=== PATIENT | female | born 1945 | race African-American/Black ===

== ENCOUNTER 2019-06-20 21:08 | Inpatient (IN) | payer MEDICARE, MEDICAID ==
[~2019-06-20] VITALS: Ht 177.8 cm; Wt 76.7 kg
[2019-06-20 21:08] VITALS: BP 108/62
--- NOTE | 2019-06-20 21:08 | NUR ---
ED Nurse Note: brought in by ambulance jaquan ra 70 from [facility] c/o hypotension 89/62. received pt with bp 108/62. patient aox1 with episodes of confusion; hx dementia. nad. vss. changed into gown; attached to monitor. safety precautions observed. family at bedside.
--- NOTE | 2019-06-20 21:16 | Emergency Room Report ---
History of Present Illness General Chief Complaint: General Complaint Source: Patient, Medical Record Present Illness HPI This is a 73-year-old female with history of diabetes and high blood pressure. She presents with chief complaint of hypotension. She also has history of dementia. She was at a [facility]. She was sitting in the chair and nursing staff took her blood pressure. It was 88/40 with a heart rate in the 80s. Patient has no symptoms. They called 911. Patient have any complaint. Per clam bed laborer their blood pressure was 92/68. Here is 108/60. Patient denies any chest pain. She has no shortness of breath. She has no abdominal pain. She has no urinary complaint. Allergies: Coded Allergies: PENICILLINS (Unverified Allergy, Unknown, 06/20/19) Uncoded Allergies: PCN (Allergy, Unknown, 06/20/19) Patient History Past Medical History: see triage record, old chart reviewed Past Surgical History: none Pertinent Family History: none Social History: Denies: smoking Now: No Immunizations: other Reviewed Nursing Documentation: PMH: Agreed; PSxH: Agreed Nursing Documentation-PMH Past Medical History: No History, Except For Hx Cardiac Problems: Yes - angina pectoris Hx Hypertension: Yes - hyperlipidemia Hx Neurological Problems: Yes - dementia Review of Systems Eye: Denies: eye pain, blurred vision ENT: Denies: ear pain, nose congestion, throat swelling Respiratory: Denies: cough, shortness of breath Cardiovascular: Denies: chest pain, palpitations Gastrointestinal: Denies: abdominal pain, diarrhea, nausea, vomiting Musculoskeletal: Denies: back pain, joint pain Skin: Denies: rash Neurological: Denies: headache, numbness Endocrine: Denies: increased thirst, increased urine Hematologic/Lymphatic: Denies: easy bruising All Other Systems: negative except mentioned in HPI Physical Exam Vital Signs Date Time Temp Pulse Resp B/P (MAP) Pulse Ox O2 Delivery O2 Flow Rate FiO2 06/20/19 21:04 99.0 89 16 108/62 (77) 100 Room Air Vitals normal Sp02 EP Interpretation: reviewed, normal General Appearance: well appearing, no apparent distress, alert Head: normocephalic, atraumatic Eyes: bilateral eye PERRL, bilateral eye EOMI ENT: hearing grossly normal, normal pharynx Neck: full range of motion, supple, no meningismus Respiratory: chest non-tender, lungs clear, normal breath sounds Cardiovascular #1: regular rate, rhythm, no murmur Gastrointestinal: normal bowel sounds, non tender, no mass, no organomegaly, no bruit, non-distended Musculoskeletal: back normal, normal range of motion, gait/station normal Psychiatric: mood/affect normal Medical Decision Making Diagnostic Impression: Primary Impression: Encephalopathy acute Additional Impressions: Transient hypotension ARF (acute renal failure) Qualified Codes: N17.9 - Acute kidney failure, unspecified ER Course Patient presents with confusion and transient hypotension. I spoke with Dr. Linn Stallworth. She said that at baseline patient is agitated and somewhat combative. She said that at the fdc she was lethargic and decreased mentation per fdc staff. Initial blood pressure was mid 80s over 40s. Were waist up and systolic became 99. Nursing staff called her again and said it dropped down to the 80s again. She ordered IV fluids but there were no residents or nurse there so they sent her here by 911. Here patient has no complaint but seem to be sedated which seemed to be decreased from baseline. Labs showed acute renal failure. We called the fdc but there is no previous labs. Dr. Stallworth wanted the patient to be admitted to Dr. Green. I discussed the case with him and he accepted the patient for admission. Rhythm Strip Diag. Results EP Interpretation: yes Rate: 89 Rhythm: NSR, no PVC's, no ectopy Last Vital Signs Date Time Temp Pulse Resp B/P (MAP) Pulse Ox O2 Delivery O2 Flow Rate FiO2 06/20/19 21:04 99.0 89 16 108/62 (77) 100 Room Air Status: improved Disposition: ADMITTED INPATIENT Condition: Serious Kane Maldonado MD Jun 20, 2019 21:16
--- NOTE | 2019-06-20 21:20 | NUR ---
ED Nurse Note: IV ACCESS ESTABLISHED. BLOOD COLLECTED; SENT DOWN TO LAB. UNABLE TO OBTAIN URINE; PT STATES SHE WILL PROVIDE WHEN ABLE.
[2019-06-20 21:44] LABS: BASOPHILS % (AUTO) 0.5 % (0.0-2.0); EOSINOPHILS % (AUTO) 0.3 % (0.0-3.0); HEMATOCRIT 34.5 % (37.0-47.0); HEMOGLOBIN 11.1 G/DL (12.0-16.0); LYMPHOCYTES % (AUTO) 13.9 % (20.0-45.0); MEAN CORPUSCULAR VOLUME 99 FL (80-99); MONOCYTES % (AUTO) 5.6 % (1.0-10.0); NEUTROPHILS % (AUTO) 79.7 % (45.0-75.0); PLATELET COUNT 243 K/UL (150-450); RED BLOOD COUNT 3.49 M/UL (4.20-5.40); WHITE BLOOD COUNT 11.1 K/UL (4.8-10.8)
[2019-06-20 21:56] LABS: ANION GAP 11 mmol/L (5-15); BLOOD UREA NITROGEN 49 mg/dL (7-18); CALCIUM 9.1 MG/DL (8.5-10.1); CARBON DIOXIDE 25 MMOL/L (21-32); CHLORIDE 105 MMOL/L (98-107); CREATININE 2.4 MG/DL (0.55-1.30); POTASSIUM 5.6 MMOL/L (3.5-5.1); SODIUM 141 MMOL/L (136-145)
--- NOTE | 2019-06-20 21:59 | NUR ---
ED Nurse Note: URINE COLLECTED; SENT DOWN TO LAB.
[2019-06-20 22:11] LABS: APPEARANCE,URINE SLIGHTLY CLOUDY; BILIRUBIN, URINE NEGATIVE (NEGATIVE); COLOR,URINE AMBER; GLUCOSE, URINE (UA) 2+ (NEGATIVE); KETONES,URINE NEGATIVE (NEGATIVE); LEUKOCYTE ESTERASE ,URINE NEGATIVE (NEGATIVE); NITRITE,URINE NEGATIVE (NEGATIVE); PH,URINE 5 (4.5-8.0); PROTEIN,URINE 1+ (NEGATIVE); UROBILINOGEN,URINE 1 MG/DL (0.0-1.0)
[2019-06-20 22:43] VITALS: BP 128/62
[2019-06-20] MEDS ORDERED: Miralax 17gm pkt ORAL PRN (22:45)
[2019-06-20] MEDS ORDERED: BISACODYL5 MG RECTAL (22:45)
[2019-06-20] MEDS ORDERED: ATORVASTATIN CA40 MG ORAL (22:45)
[2019-06-20] MEDS ORDERED: Nitroglycerin Subl 0.4mg tab SL PRN (22:45)
[2019-06-20] MEDS ORDERED: GLIPIZIDE5 MG ORAL (22:45)
[2019-06-20] MEDS ORDERED: COLACE100 MG ORAL (22:45)
[2019-06-20] MEDS ORDERED: LANTUS SOL100 UNIT/1 SUBQ (22:45)
--- NOTE | 2019-06-20 22:46 | NUR ---
ED Nurse Note: ekg done at bedside by [facility]; nsr. mrsa swab collected; sent down to lab. pt refused vre swab.
[2019-06-20] MEDS ORDERED: METFORMIN HCL850 M1 ORAL (23:09)
[2019-06-20] MEDS ORDERED: MIRTAZAPINE15 MG ORAL (23:09)
[2019-06-20] MEDS ORDERED: MILK OF MA400 MG/51 ORAL (23:09)
[2019-06-20] MEDS ORDERED: LISINOPRIL5 MG ORAL (23:09)
[2019-06-20] MEDS ORDERED: GLUCOSE GEL38 GM PO (23:09)
[2019-06-20] MEDS ORDERED: NOVOLIN R100 UNIT/1 SUBQ (23:09)
[2019-06-20] MEDS ORDERED: TYLENOL EXTRA500 MG ORAL (23:10)
[2019-06-20] MEDS ORDERED: SENNA8.6 M2 PO (23:10)
--- NOTE | 2019-06-20 23:15 | NUR ---
ED Nurse Note: blood cultures collected; sent down to lab.
[2019-06-20 23:18] VITALS: BP 114/62
[2019-06-20 23:19] VITALS: BP_SYST 114; BP_SYST 128; BP_SYST 98; BP_DIAS 62; BP_DIAS 83
[2019-06-20 23:50] VITALS: BP 134/77
--- NOTE | 2019-06-20 23:50 | NUR ---
NURSE NOTES: Patient transferred to floor in stable condition, AOx1, denies pain, no skin impairment. Received report from TERESO Hall. Belonging list checked and signed, admission packet received.Orders in. Bed low&locked, side rail upx3, call light within reach, will continue to monitor and reassess
--- NOTE | 2019-06-20 23:50 | NUR ---
TRANSFER TO FLOOR: Patient transferred to [facility] 211-1 as ordered, per rahat pate. Report given to anahi. patient stable for transfer. transported to floor via gurney with merly and rn. belongings list and admission packet sent with patient.
--- NOTE | 2019-06-21 01:06 | NUR ---
NURSE NOTES: Patient is a very poor historian, unable to obtain any information upon assessment. Refused IV fluid and removed her IV. Not cooperating and combative. Reassured and oriented patient to room and hospital. Bed low&locked, side rails upx3, call light within reach, will continue to monitor and reassess
[2019-06-21 04:00] VITALS: BP 132/81
--- NOTE | 2019-06-21 04:00 | NUR ---
NURSE NOTES: patient refused EKG
[2019-06-21 05:52] LABS: BASOPHILS % (AUTO) 0.8 % (0.0-2.0); EOSINOPHILS % (AUTO) 1.1 % (0.0-3.0); HEMATOCRIT 28.8 % (37.0-47.0); HEMOGLOBIN 9.9 G/DL (12.0-16.0); LYMPHOCYTES % (AUTO) 36.9 % (20.0-45.0); MEAN CORPUSCULAR VOLUME 95 FL (80-99); MONOCYTES % (AUTO) 8.1 % (1.0-10.0); NEUTROPHILS % (AUTO) 53.2 % (45.0-75.0); PLATELET COUNT 218 K/UL (150-450); RED BLOOD COUNT 3.03 M/UL (4.20-5.40); RED CELL DISTRIBUTION WIDTH 10.4 % (11.6-14.8); WHITE BLOOD COUNT 6.7 K/UL (4.8-10.8)
--- NOTE | 2019-06-21 05:59 | NUR ---
NURSE NOTES: refused accu-check
[2019-06-21] MEDS: NovoLOG Insulin Flexpen SUBQ SCH ×4 (06:29→21:00)
[2019-06-21 06:46] LABS: ALANINE AMINOTRANSFERASE 18 U/L (12-78); ALBUMIN 2.4 G/DL (3.4-5.0); ALBUMIN/GLOBULIN RATIO 0.7 (1.0-2.7); ALKALINE PHOSPHATASE 75 U/L (46-116); ANION GAP 11 mmol/L (5-15); ASPARTATE AMINO TRANSFERASE 15 U/L (15-37); BILIRUBIN,TOTAL 0.3 MG/DL (0.2-1.0); BLOOD UREA NITROGEN 40 mg/dL (7-18); CALCIUM 8.8 MG/DL (8.5-10.1); CARBON DIOXIDE 22 MMOL/L (21-32); CHLORIDE 112 MMOL/L (98-107); CHOLESTEROL 169 MG/DL (< 200); CREATINE KINASE 68 U/L (26-308); CREATININE 1.5 MG/DL (0.55-1.30); HDL CHOLESTEROL 55 MG/DL (40-60); PHOSPHORUS 3.2 MG/DL (2.5-4.9); POTASSIUM 4.4 MMOL/L (3.5-5.1); SODIUM 145 MMOL/L (136-145); TRIGLYCERIDES 52 MG/DL (30-150)
--- NOTE | 2019-06-21 07:35 | NUR ---
HAND-OFF: Report given to Zara RIDER patient in stable condition, plan of care endorsed.
--- NOTE | 2019-06-21 08:30 | NUR ---
NURSE NOTES: Patient very confused only oriented to self stating she needs to leave. RR even and unlabored on 2L NC. No s/sx of distress. Bed alarm on, Side rails upx2, call light within reach, bed low and locked. Will continue to monitor.
--- NOTE | 2019-06-21 08:38 | Diagnostic Imaging Report ---
Indication: Acute renal failure, abnormal renal function tests Technique: Grayscale and duplex images of the kidneys, retroperitoneum, and bladder were obtained. Comparison: none Findings: Exam is limited as patient unable to position and cooperate optimally. Right kidney measures 10 cm in length. Left kidney measures 8.4 cm in length. Both kidneys demonstrate normal echogenicity. Right kidney demonstrates mild hydronephrosis. Left kidney is poorly visualized, demonstrates no hydronephrosis. It does demonstrate a 5 cm upper pole cyst. Normal inferior vena cava. Bladder is markedly distended, calculated volume 621 mL. Impression: Somewhat limited exam, as described Distended bladder, calculated volume 621 mL Mild right hydronephrosis, possibly related to the above but other etiologies possible. Incidental finding of left upper pole renal cyst.
[2019-06-21] MEDS ORDERED: GlipiZIDE 5mg tab ORAL SCH (09:00)
[2019-06-21] MEDS: Docusate 100mg cap ORAL SCH ×2 (09:26→17:55)
[2019-06-21] MEDS: Aspirin Baby 81mg ORAL SCH (09:27)
[2019-06-21] MEDS: Heparin 5000 units/ml inj SUBQ SCH ×2 (09:51→21:00)
[2019-06-21 12:00] VITALS: BP 137/64
--- NOTE | 2019-06-21 13:01 | NUR ---
ST NOTES: REFERRED FOR SWALLOW EVALUATION BY DR MENDEZ, SEE FULL REPORT. DYSPHAGIA RISK FACTORS FOR THIS 73 Y.O.F.: ACUTE ISSUES: AMS (AGITATED, COMBATIVE) ENCEPHALOPATHY, TRANSIENT HYPOTENSION, RENAL FAILURE, LUNGS ARE CLEAR PER MD (NO CXR) ON ROOM AIR WITH GOOD RESP RATE 16 AND SP02 100%. H/O DEMENTIA HAS COGNITIVE-COMMUNICATIVE DEFICITS, MDD AND ANXIETY (ON REMERON AND HAD NEUROPSYCH CONSULT REQUESTED AT SNF), DM2 (ON METFORMIN), ANGINA PECTORIS. PER RAGHAV, OK TO HAVE CHEMICAL MAKER ARTIFICIAL NUTRITION IF NEEDS. AT SNF ON A TEGAN AND CCHO REGULAR TEXTURE DIET AND THIN LIQUIDS. NOW ON A CCHO-MED AND TEXTURE DIET AND THIN LIQUIDS WITH NO INTAKE RECORDED. NO REPORT BY DIETITIAN TO DATE. PER RN, THE PATIENT ATE ALL OF HER LUNCH AND HER SISTER FED HER. CRUSHED MEDS WITH APPLESAUCE TAKEN W/O OVERT PROBLEMS. ALERT AND ABLE TO COMMUNICATE BASIC NEEDS BUT TENDS TO HAVE CONFUSED LANGUAGE AND CONFABULATE. GOOD DENTITION AND ABLE TO CUT HER OWN FOOD. INITIAL IMPRESSION GROSSLY FUNCTIONAL OROMOTOR SKILLS AND SWALLOW WITH THIN LIQUIDS SEQUENTIAL SIPS VIA STRAW (3 0Z WATER LODGE SWALLOW PROTOCOL), PUREED TSP, AND MASTICATED SOLID (1/2 CRACKER) W/O OVERT ASPIRATION. HAS SILENT ASPIRATION RISK DUE TO DEMENTIA DX BUT LUNGS ARE CLEAR GOOD INTAKE AT 100% WITH SELF-FEEDING. RECOMMENDATIONS CONTINUE WITH CURRENT CCHO-MED REG TEXTURE DIET AND THIN LIQUIDS BUT CONSIDER ADDING TEGAN SINCE THIS WAS DIET AT [facility] (UNTIL RD EVALUATES) WILL HOLD OFF ON MOD BARIUM SWALLOW STUDY AT THIS TIME. WILL D/C FROM SKILLED SWALLOW SERVICES BUT WILL F/UP REGARDING COGNITIVE-COM EVAL/TX FOR COMMUNICATION TIPS D/W TERESO FU AND PATIENT
--- NOTE | 2019-06-21 13:45 | NUR ---
P.T Note: P.T evaluation completed and tx initiated. Pt received sitting at the EOB , sister present. Pt is alert, oriented to self/person but not to time and current situation. Pt is pleasant, cooperative and follows simple commands. Pt had no c/o pain but reports feeling generally weak. Pt is independent in bed mobility tasks and SBA X 1 with transfer activities. Pt was able to ambulate w/o an AD x 100 ft however presented unsteady gait with episode of LOB x 4 when pt got distracted and during sudden head turn/transitional movement therefore CGA provided. Skilled P.T service is warranted to improve strength and balance to increase mobility independence and safety. Recommend DC to prior living arrangement with continued P.T intervention. Recommending FWW to promote gait stability and safety. Pt is cleared for OOB activities with Nursing assistance.
--- NOTE | 2019-06-21 13:55 | NUR ---
CASE MANAGEMENT:INITIAL REVIEW 73 YR OLD FEMALE BIBA FROM [facility] CC;GENERAL COMPLAINT SI;AC ENCEPHALOPATHY. TRANSIENT HYPOTENSION. AC RENAL FAILURE. 99.0 94 16 98/83 95% ON RA WBC 11.1 K+ 5.6 BUN 49 CR 2.4 BG 298 UA+ PROTEIN, GLUCOSE, UROBILI UA CR 187.4 RENAL US - Incidental finding of left upper pole renal cyst. Mild right hydronephrosis. IS;IVF NS BOLUS ADMITTED TO TELEMETRY TELE STATUS DCP;FROM [facility]
[2019-06-21] MEDS: Sennosides 8.6mg tab ORAL SCH ×2 (13:56→17:55)
[2019-06-21] MEDS: Tamsulosin 0.4mg cap ORAL SCH ×2 (13:56→17:56)
[2019-06-21] MEDS: Bethanechol 25mg Tab ORAL SCH ×2 (13:57→17:57)
[2019-06-21 16:00] VITALS: BP 135/72
[2019-06-21] MEDS: GlipiZIDE 5mg tab ORAL SCH (17:56)
--- NOTE | 2019-06-21 19:00 | History and Physical Report ---
DATE OF ADMISSION: 06/20/2019 CHIEF COMPLAINT AND REASON FOR HOSPITALIZATION: The patient is a 73-year-old lady, who resides in a correction facility, admitted with episodes of hypotension, weakness, anemia, and diabetes. HISTORY OF PRESENT ILLNESS: The patient is a resident of [facility], is a poor historian. Apparently, she has a history of diabetes, hypertension, dementia, and possible psychiatric problems. She was found to have several blood pressures in the 80s at the [facility] and was orthostatic, weak and possibly near syncope. She was sent to the emergency room and en route the pressure was 92/68, then 108/60 on arrival. She was found to have elevated BUN and creatinine anemia. The patient is a poor historian and likely is confabulating. There is unreliable history per the patient. ALLERGIES: Listed as penicillin, but the patient cannot give me that information. MEDICATIONS: Atorvastatin 80 mg at bedtime, Basaglar insulin units in the evening, Colace 250 mg twice a day, cranberry two tablets twice a day, Dulcolax suppository as needed, fleets enema as needed, glipizide 5 mg daily, glucagon as needed for low sugar. She also has Tylenol 1000 mg every 6 hours as needed, lisinopril HCT 10-12.5 mg one daily, metformin 750 mg twice a day, milk of magnesia p.r.n., MiraLAX as needed, NovoLog sliding scale, Remeron 15 mg at bedtime, and senna two tablets at bedtime. SURGERIES: None per patient. HABITS: Denies smoking or alcohol. SOCIAL HISTORY: She lives in an [facility]. I asked her if she has family and she at first says she has never had children and then says she has a child, but she cannot remember the name. There is Aristides Amezquita and Ronel Amezquita listed as relatives in the face sheet who I have yet to reach. SYSTEM REVIEW: Again, the patient is not an accurate historian but this is her report. HEAD, EYES, EARS, NOSE, AND THROAT: She denies problems with vision and hearing. ENDOCRINE: Diabetes as above. No known thyroid disease. PULMONARY: Denies coughing or short of breath. CARDIAC: Denies chest pain, palpitations, or SC. GASTROINTESTINAL: Denies nausea, vomiting, hematochezia or melena. GENITOURINARY: Denies dysuria or hematuria. NEUROLOGIC: Denies CVA or seizures. MUSCULOSKELETAL: Denies joint pain. PHYSICAL EXAMINATION: GENERAL: The patient is alert, well-developed lady, in no acute distress. VITAL SIGNS: Temperature 97.7, pulse 89, respirations 20, and blood pressure 137/64. HEAD, EYES, EARS, NOSE, AND THROAT: Sclerae are nonicteric. Ocular motions intact in all directions. Oral mucosa is moist. NECK: No adenopathy or thyroid enlargement. LUNGS: Clear. HEART: Rhythm is regular. I hear no murmur. BREASTS: Exam done by the nurse that she did not want a male to examine her and the nurse felt no masses. ABDOMEN: Soft without organomegaly or masses. EXTREMITIES: No edema, cyanosis, or clubbing. No swollen joints. NEUROLOGIC: She is alert and responsive with clear speech. Ocular motions intact in all directions. Smile symmetric. Tongue is midline. She moves all extremities equally. Plantars are equivocal. The patient has some difficulty following simple instructions. Bwrwgn-xcrt-sqjjsw testing shows no ataxia or dysmetria. Gait is somewhat broad based without any paresis. She is alert, but cannot give the proper month or year, is disoriented and she cannot give the address where she lives or the name of the place where she lives. Calculations, she is unable to calculate 100-7. She is unable to name the president. PSYCHIATRIC: The patient is calm, follows instructions. She seems to be confabulating her answers to questions and tries to defer her answers. LABORATORY DATA: Review of pertinent labs, initial hemoglobin of 11.1 after hydration 9.9. White count 11.1, repeat 6.7. BUN 49 and creatinine 2.4, repeat 40 and 1.5. Potassium 5.6, repeat 4.4. Troponin 0.018 and 0.022. Albumin is 2.4. Cholesterol 169. TSH is 1.209. Urinalysis shows 1+ protein, 2+ glucose, and 0 to 2 white cells per high-power field. Renal ultrasound show dilated bladder and some right hydronephrosis and left upper pole cyst. IMPRESSION: 1. Orthostatic hypotension likely due to dehydration with thiazide diuretic and blood pressure medicines. 2. Anemia, etiology unclear, possibly related to occult gastrointestinal bleed and other etiology. 3. Hyperkalemia, improved with hydration. 4. Adult-onset diabetes with hyperglycemia 298, 192. 5. Hydronephrosis secondary to bladder distention. 6. Dementia, likely Alzheimer's. 7. History of agitated behavior. Psychiatric consult pending. PLAN: The patient will be hydrated. We will watch for urinary retention. Evaluation of her anemia. Psychiatric evaluation. We need to stop diuretics, reassess blood pressure management, reassess diabetic management. Condition is complex and likely will require several days of inpatient hospitalization to avoid recurrent hospitalization. Jamaal Green M.D. DR: DEVENDRA JOB#: [id number] CC:
--- NOTE | 2019-06-21 19:33 | NUR ---
HAND-OFF: Report given to Gonsalo Guajardo RN. Patient stable. Plan of care endorsed.
--- NOTE | 2019-06-21 19:34 | NUR ---
NURSE NOTES: Received pt from TERESO Izaguirre. Pt is resting in bed in no acute distress. Iv site intact. Bed locked in lowest position, bed alarm on, call light within reach. Will continue with plan of care.
[2019-06-21] MEDS: Atorvastatin 80mg tab ORAL SCH (20:59)
--- NOTE | 2019-06-22 03:45 | Consultation ---
DATE OF CONSULTATION: 06/21/2019 CONSULTING PHYSICIAN: Jose Haskins M.D. HISTORY OF PRESENT ILLNESS: This is a 73-year-old female, who [facility]. The patient has a history of diabetes, hypertension, dementia, and depression. The patient was evaluation, confused. Sister was at bedside. The patient presents with depressed mood, anhedonia, worthlessness, and hopelessness. PAST PSYCHIATRIC HISTORY: Depression and dementia. The patient is currently on mirtazapine for low appetite and depression. PAST MEDICAL HISTORY: Significant for acute renal failure, hypertension, diabetes mellitus. ALLERGIES: Penicillin . MENTAL STATUS EXAMINATION: The patient is alert and oriented times self and place. Mood is depressed. Affect is tearful, congruent with mood. Thought process is concrete. Thought content, no suicidal or homicidal ideation. Cognition is impaired. Insight and judgment impaired. ASSESSMENT: 1. Dementia. 2. Major depressive disorder. PLAN: 1. We will continue Remeron. 2. Provide the patient with reality orientation and supportive therapy. Jose Haskins M.D. DR: DEE DEE JOB#: [id number] CC:
[2019-06-22] MEDS: NovoLOG Insulin Flexpen SUBQ SCH ×4 (06:12→21:04)
--- NOTE | 2019-06-22 07:40 | NUR ---
NURSE NOTES: received patient A/A/Ox1, confused and wanders on the hallway with a steady gait. IV heplock patent and intact. No acute cardio-resp distress noted. constant reorientation to the patient. bed is in the lowest position. siderails are up x3. call light is within reach. will cont to monitor.
--- NOTE | 2019-06-22 07:45 | NUR ---
NURSE NOTES: patient is A/A/Ox4 Addendum: 06/22/19 at 1056 by NAUN VICKERS LVN disregard message above.
--- NOTE | 2019-06-22 07:55 | NUR ---
HAND-OFF: Report given to TERESO Ledbetter. Endorsed plan of care. Pt resting in bed in no acute distress with HOB elevated. Iv site intact. Bed locked in lowest position bed alarm on, call light within reach.
[2019-06-22 08:00] VITALS: BP 117/65
[2019-06-22] MEDS: Sennosides 8.6mg tab ORAL SCH ×2 (08:44→17:03)
[2019-06-22] MEDS: Aspirin Baby 81mg ORAL SCH (08:44)
[2019-06-22] MEDS: Bethanechol 25mg Tab ORAL SCH ×3 (08:44→17:03)
[2019-06-22] MEDS: GlipiZIDE 5mg tab ORAL SCH ×3 (08:44→17:47)
[2019-06-22] MEDS: Tamsulosin 0.4mg cap ORAL SCH ×2 (08:44→17:03)
[2019-06-22] MEDS: Docusate 100mg cap ORAL SCH (08:45)
[2019-06-22] MEDS: Heparin 5000 units/ml inj SUBQ SCH ×2 (08:46→21:14)
--- NOTE | 2019-06-22 09:00 | NUR ---
NURSE NOTES: patient appeared to be not able to stay still. wanders oftens and supervise by staff when ambulating. Not able to comply with instructions. Explained the indications and importance. will cont to monitor.
[2019-06-22 11:43] LABS: BASOPHILS % (AUTO) 0.7 % (0.0-2.0); EOSINOPHILS % (AUTO) 1.8 % (0.0-3.0); HEMATOCRIT 31.6 % (37.0-47.0); HEMOGLOBIN 10.5 G/DL (12.0-16.0); LYMPHOCYTES % (AUTO) 34.9 % (20.0-45.0); MEAN CORPUSCULAR VOLUME 97 FL (80-99); MONOCYTES % (AUTO) 7.5 % (1.0-10.0); NEUTROPHILS % (AUTO) 55.2 % (45.0-75.0); PLATELET COUNT 226 K/UL (150-450); RED BLOOD COUNT 3.26 M/UL (4.20-5.40); RED CELL DISTRIBUTION WIDTH 10.8 % (11.6-14.8)
[2019-06-22 12:00] VITALS: BP 143/82
[2019-06-22 12:19] LABS: ANION GAP 12 mmol/L (5-15); BLOOD UREA NITROGEN 41 mg/dL (7-18); CALCIUM 9.5 MG/DL (8.5-10.1); CARBON DIOXIDE 24 MMOL/L (21-32); CHLORIDE 105 MMOL/L (98-107); CREATINE KINASE 124 U/L (26-308); CREATININE 1.5 MG/DL (0.55-1.30); FERRITIN 54 NG/ML (8-388); POTASSIUM 5.6 MMOL/L (3.5-5.1); SODIUM 141 MMOL/L (136-145)
[2019-06-22 12:32] LABS: % IRON SATURATION 28 % (15-50); IRON 74 ug/dL (50-175); TOTAL IRON BINDING CAPACITY 269 ug/dL (250-450)
--- NOTE | 2019-06-22 13:07 | NUR ---
NURSE NOTES: PATIENT APPEARED CONFUSED AND NEED ASSISTANCE WHENEVER PATIENT AMBULATES ON THE HALLWAY. PATIENT IS HIGH RISK FOR FALLS AND WANDERS. HAD EXCELLENT APPETITE. WILL CONT TO MONITOR.
--- NOTE | 2019-06-22 13:15 | NUR ---
NURSE NOTES: MADE DR MENDEZ AWARE OF THE K+5.6 TODAY. NO NEW ORDER OBTAINED.
[2019-06-22 15:59] VITALS: BP 123/76
[2019-06-22] MEDS: Docusate 250mg cap ORAL SCH (17:11)
--- NOTE | 2019-06-22 17:28 | General Progress Note ---
Assessment/Plan Problem List: (1) ARF (acute renal failure) ICD Codes: N17.9 - Acute kidney failure, unspecified SNOMED: 57223243 Qualifiers: Qualified Codes: N17.9 - Acute kidney failure, unspecified (2) Transient hypotension ICD Codes: I95.9 - Hypotension, unspecified SNOMED: 09723952732912 (3) Alzheimer disease ICD Codes: G30.9 - Alzheimer's disease, unspecified; F02.80 - Dementia in other diseases classified elsewhere without behavioral disturbance SNOMED: 27758786 (4) Incomplete bladder emptying ICD Codes: R33.9 - Retention of urine, unspecified SNOMED: 962104896 (5) Hyperkalemia ICD Codes: E87.5 - Hyperkalemia SNOMED: 00223482 (6) Dehydration ICD Codes: E86.0 - Dehydration SNOMED: 85648827 (7) anemia Assessment/Plan: hydrate, f/u lab, titrate dm meds, psych eval Subjective Constitutional: Reports: weakness HEENT: Reports: no symptoms Cardiovascular: Reports: no symptoms Respiratory: Reports: no symptoms Gastrointestinal/Abdominal: Reports: no symptoms Genitourinary: Reports: no symptoms Neurologic/Psychiatric: Reports: no symptoms, emotional problems Endocrine: Reports: no symptoms Hematologic/Lymphatic: Reports: no symptoms Allergies: Coded Allergies: PENICILLINS (Unverified Allergy, Unknown, 06/20/19) Uncoded Allergies: PCN (Allergy, Unknown, 06/20/19) Objective Last 24 Hour Vital Signs Date Time Temp Pulse Resp B/P (MAP) Pulse Ox O2 Delivery O2 Flow Rate FiO2 06/22/19 16:00 108 06/22/19 15:59 98.1 93 20 123/76 (92) 99 06/22/19 12:00 98 98 100 06/22/19 12:00 78 06/22/19 12:00 98.1 98 20 143/82 (102) 100 06/22/19 09:30 Room Air 06/22/19 08:00 97.9 88 21 117/65 (82) 99 06/22/19 08:00 98 06/22/19 04:00 89 06/22/19 04:00 89 06/22/19 00:00 86 06/22/19 00:00 86 06/21/19 21:00 Room Air 06/21/19 20:00 87 06/21/19 20:00 87 Intake and Output 06/21/19 06/22/19 19:00 07:00 Intake Total 600 ml 120 ml Balance 600 ml 120 ml Intake Oral 600 ml Other 120 ml # Voids 1 1 Laboratory Tests 06/22/19 11:23: Sodium Level 141, Potassium Level 5.6H, Chloride Level 105, Carbon Dioxide Level 24, Anion Gap 12, Blood Urea Nitrogen 41H, Creatinine 1.5H, Estimat Glomerular Filtration Rate 41.5, Glucose Level 284H, Calcium Level 9.5, Iron Level 74, Total Iron Binding Capacity 269, Percent Iron Saturation 28, Unsaturated Iron Binding 195, Ferritin 54, Total Creatine Kinase 124, Troponin I 0.007, Vitamin B12 Level 536, Folate 15.2 06/22/19 11:25: White Blood Count 7.0, Red Blood Count 3.26L, Hemoglobin 10.5L, Hematocrit 31.6L , Mean Corpuscular Volume 97, Mean Corpuscular Hemoglobin 32.2H, Mean Corpuscular Hemoglobin Concent 33.2, Red Cell Distribution Width 10.8L, Platelet Count 226, Mean Platelet Volume 6.3L, Neutrophils (%) (Auto) 55.2, Lymphocytes (%) (Auto) 34.9, Monocytes (%) (Auto) 7.5, Eosinophils (%) (Auto) 1.8, Basophils (%) (Auto) 0.7 Height (Feet): 5 Height (Inches): 10.00 Weight (Pounds): 175 General Appearance: no apparent distress EENT: PERRL/EOMI Neck: non-tender Cardiovascular: normal rate Respiratory/Chest: lungs clear Abdomen: soft, no organomegaly Edema: no edema noted Arm (L), no edema noted Arm (R), no edema noted Leg (L), no edema noted Leg (R), no edema noted Pedal (L), no edema noted Pedal (R), no edema noted Generalized Neurologic: customer solutions supervisor II-XII grossly normal, disoriented Jamaal Green MD Jun 22, 2019 17:28
--- NOTE | 2019-06-22 17:40 | NUR ---
NURSE NOTES: Dr Green notified for PVR 143ml. NO new order obtained. will cont to monitor
--- NOTE | 2019-06-22 19:22 | NUR ---
HAND-OFF: Report given to Akila.
--- NOTE | 2019-06-22 19:30 | NUR ---
NURSE NOTES: RECEIVED PATIENT LYING IN BED, EYES CLOSED, AWAKENED TO NAME, DENIES PAIN. NO SIGNS AND SYMPTOMS OF ACUTE CARDIO RESPIRATORY DISTRESS/SHORTNESS OF BREATH, NO EDEMA NOTED. IV INTACT TO LEFT AC/GAUGE 22, NO REDNESS/SWELLING NOTED. SINUS RHYTHM ON DUAL HOSE CEMENTER. ABDOMEN SOFT/NON DISTENDED/NON TENDER, NO REPORT OF N/V/D. SIDE RAILS UP X3/BED IN LOWEST POSITION FOR SAFETY. CALL LIGHT WITHIN REACH AT ALL TIMES. BED ALARM ACTIVATED FOR SAFETY. CONTINUE WITH CURRENT PLAN OF CARE. NAD.
[2019-06-22 20:00] VITALS: BP 134/73
[2019-06-22] MEDS: Atorvastatin 80mg tab ORAL SCH (21:06)
[2019-06-23] VITALS: BP 115/75
[2019-06-23 04:00] VITALS: BP 118/63
[2019-06-23] MEDS: NovoLOG Insulin Flexpen SUBQ SCH ×4 (06:07→21:19)
--- NOTE | 2019-06-23 06:08 | NUR ---
NURSE NOTES: RESTED WELL, NO SIGNIFICANT CHANGE OF CONDITION NOTED THROUGHOUT THE NIGHT. SAFETY MAINTAINED. NAD.
--- NOTE | 2019-06-23 07:30 | NUR ---
NURSE NOTES: Received pt from SID ORTIZ, Pt is awake and confused, pt is on RA, no SOB or acute respiratory distress noted, Pt is on continues cardiac monitoring, pt has intact iv access LAC 22G is running well. Pt is eating breakfast by observation. all needs attended, bed is locked and is in the lowest position, call light within easy reach. will continue to monitor.
[2019-06-23 08:00] VITALS: BP 120/96
[2019-06-23 08:24] LABS: BASOPHILS % (AUTO) 0.6 % (0.0-2.0); HEMATOCRIT 29.3 % (37.0-47.0); HEMOGLOBIN 9.9 G/DL (12.0-16.0); LYMPHOCYTES % (AUTO) 29.7 % (20.0-45.0); MEAN CORPUSCULAR VOLUME 96 FL (80-99); MONOCYTES % (AUTO) 9.5 % (1.0-10.0); NEUTROPHILS % (AUTO) 58.1 % (45.0-75.0); PLATELET COUNT 207 K/UL (150-450); RED BLOOD COUNT 3.04 M/UL (4.20-5.40); WHITE BLOOD COUNT 8.1 K/UL (4.8-10.8)
[2019-06-23 08:45] LABS: ANION GAP 7 mmol/L (5-15); BLOOD UREA NITROGEN 37 mg/dL (7-18); CALCIUM 9.1 MG/DL (8.5-10.1); CARBON DIOXIDE 27 MMOL/L (21-32); CHLORIDE 111 MMOL/L (98-107); CREATININE 1.3 MG/DL (0.55-1.30); POTASSIUM 4.9 MMOL/L (3.5-5.1); SODIUM 145 MMOL/L (136-145)
[2019-06-23] MEDS: Heparin 5000 units/ml inj SUBQ SCH ×2 (09:07→20:27)
[2019-06-23] MEDS: GlipiZIDE 5mg tab ORAL SCH ×3 (09:07→17:52)
[2019-06-23] MEDS: Aspirin Baby 81mg ORAL SCH (09:08)
[2019-06-23] MEDS: Sennosides 8.6mg tab ORAL SCH ×2 (09:08→17:21)
[2019-06-23] MEDS: Docusate 250mg cap ORAL SCH ×2 (09:08→17:21)
[2019-06-23] MEDS: Tamsulosin 0.4mg cap ORAL SCH ×2 (09:08→17:21)
[2019-06-23 12:00] VITALS: BP 143/64
--- NOTE | 2019-06-23 13:28 | NUR ---
NURSE NOTES Per Dr Giang for DC planning, [facility] was notified, spoke to AGATA, and stated can take patient tomorrow, dr giang was notified, and gave order okay to transfer to [facility].
--- NOTE | 2019-06-23 14:38 | General Progress Note ---
Assessment/Plan Problem List: (1) ARF (acute renal failure) ICD Codes: N17.9 - Acute kidney failure, unspecified SNOMED: 02207347 Qualifiers: Qualified Codes: N17.9 - Acute kidney failure, unspecified (2) Transient hypotension ICD Codes: I95.9 - Hypotension, unspecified SNOMED: 04301450808945 (3) Alzheimer disease ICD Codes: G30.9 - Alzheimer's disease, unspecified; F02.80 - Dementia in other diseases classified elsewhere without behavioral disturbance SNOMED: 44235489 (4) Incomplete bladder emptying ICD Codes: R33.9 - Retention of urine, unspecified SNOMED: 872740300 (5) Hyperkalemia ICD Codes: E87.5 - Hyperkalemia SNOMED: 67457180 (6) Dehydration ICD Codes: E86.0 - Dehydration SNOMED: 08016379 (7) anemia Assessment/Plan: hydrate, f/u lab, titrate dm meds, psych eval, appears to be voidng well no more high residual Subjective Constitutional: Reports: weakness HEENT: Reports: no symptoms Cardiovascular: Reports: no symptoms Respiratory: Reports: no symptoms Gastrointestinal/Abdominal: Reports: no symptoms Genitourinary: Reports: no symptoms Neurologic/Psychiatric: Reports: pre-existing deficit Endocrine: Reports: no symptoms Hematologic/Lymphatic: Reports: anemia Allergies: Coded Allergies: PENICILLINS (Unverified Allergy, Unknown, 06/20/19) Uncoded Allergies: PCN (Allergy, Unknown, 06/20/19) Objective Last 24 Hour Vital Signs Date Time Temp Pulse Resp B/P (MAP) Pulse Ox O2 Delivery O2 Flow Rate FiO2 06/23/19 12:00 97.7 80 20 143/64 (90) 96 06/23/19 11:44 77 06/23/19 09:00 Room Air 06/23/19 09:00 81 84 98 06/23/19 08:00 97.7 84 20 120/96 (104) 97 06/23/19 07:43 68 06/23/19 04:00 98.6 81 18 118/63 (81) 98 06/23/19 04:00 80 06/23/19 00:00 98.6 83 18 115/75 (88) 99 06/23/19 00:00 81 06/22/19 21:00 82 92 108 06/22/19 21:00 Room Air 06/22/19 20:00 98.1 89 19 134/73 (93) 95 06/22/19 20:00 87 06/22/19 16:00 108 06/22/19 15:59 98.1 93 20 123/76 (92) 99 Intake and Output 06/22/19 06/23/19 19:00 07:00 Intake Total 1180 ml 1120 ml Output Total 143 ml Balance 1037 ml 1120 ml Intake Oral 1080 ml 120 ml IV Total 100 ml 1000 ml Output Post Void Residual 143 ml Bladder Scan Volume Amount 151-200 ml # Voids 1 Laboratory Tests 06/23/19 08:00: White Blood Count 8.1, Red Blood Count 3.04L, Hemoglobin 9.9L, Hematocrit 29.3L , Mean Corpuscular Volume 96, Mean Corpuscular Hemoglobin 32.6H, Mean Corpuscular Hemoglobin Concent 33.8, Red Cell Distribution Width 11.0L, Platelet Count 207, Mean Platelet Volume 5.6L, Neutrophils (%) (Auto) 58.1, Lymphocytes (%) (Auto) 29.7, Monocytes (%) (Auto) 9.5, Eosinophils (%) (Auto) 2.0, Basophils (%) (Auto) 0.6, Sodium Level 145, Potassium Level 4.9, Chloride Level 111H, Carbon Dioxide Level 27, Anion Gap 7, Blood Urea Nitrogen 37H, Creatinine 1.3, Estimat Glomerular Filtration Rate 49.0, Glucose Level 93#, Calcium Level 9.1 Height (Feet): 5 Height (Inches): 10.00 Weight (Pounds): 169 General Appearance: no apparent distress, alert, confused EENT: normal ENT inspection Neck: normal alignment, supple Cardiovascular: regular rhythm Respiratory/Chest: lungs clear Abdomen: soft Extremities: non-tender Edema: no edema noted Arm (L), no edema noted Arm (R), no edema noted Leg (L), no edema noted Leg (R), no edema noted Pedal (L), no edema noted Pedal (R), no edema noted Generalized Jamaal Green MD Jun 23, 2019 14:38
[2019-06-23 16:00] VITALS: BP 133/56
--- NOTE | 2019-06-23 19:18 | NUR ---
HAND-OFF: Report given to SID ORTIZ. pt is awake and stable. Dr MENDEZ is aware about post void residual 89ml, no new order to RN.
--- NOTE | 2019-06-23 19:30 | NUR ---
NURSE NOTES: RECEIVED PATIENT LYING IN BED, EYES CLOSED, AWAKENED TO NAME, DENIES PAIN. ALERT/ORIENTED TO PERSON ONLY, REALITY ORIENTATION PROVIDED DURING ASSESSMENT. NO SIGNS AND SYMPTOMS OF ACUTE CARDIO RESPIRATORY DISTRESS/SHORTNESS OF BREATH, DENIES CHEST PAIN, NO PERIPHERAL EDEMA NOTED. SR ON SUPERVISOR LANDSCAPE. IV INTACT. TO LEFT AC/GAUGE 22, NO REDNESS/SWELLING NOTED. ABDOMEN SOFT/NON DISTENDED, BOWEL SOUNDS AUDIBLE, NO REPORT OF N/V/D. SIDE RAILS UP X3, BED IN LOWEST POSITION FOR SAFETY. FREQUENT ROUNDING FOR SAFETY/NEEDS. CONTINUE WITH CURRENT PLAN OF CARE. NAD.
[2019-06-23 20:00] VITALS: BP 130/69
[2019-06-23] MEDS: Atorvastatin 80mg tab ORAL SCH (20:21)
[2019-06-23] MEDS ORDERED: Nitroglycerin Subl 0.4mg tab SL PRN (22:45)
[2019-06-23] MEDS ORDERED: Miralax 17gm pkt ORAL PRN (22:45)
--- NOTE | 2019-06-23 23:19 | NUR ---
NURSE NOTES: PATIENT TRANSFERRED TO MED SURG IN STABLE CONDITION. REPORT GIVEN TO ISMAEL, RN.
--- NOTE | 2019-06-23 23:30 | NUR ---
NURSE NOTES: PATIENT WAS SAFELY TRANSFERRED TO UNIT VIA HOSPITAL BED. REPORT RECEIVED FROM DIANA ARREAGA. BELONGING LIST REVIEWED AND SIGNED. PATIENT IS AWAKE, AAOX1, CONFUSED, FALL RISK PRECAUTION. PATIENT IS ON ROOM AIR, NO ACUTE DISTRESS NOTED. IV IS INTACT AND PATENT. PLACED PATIENT IN ROOM RIGHT NEXT TO NURSING STATION FOR CLOSE MONITORING. COMMUNICATED WITH STAFF ABOUT FREQUENT ROUNDING. YELLOW GOWN, YELLOW SOCKS, AND FALL RISK YELLOW ARMBAND APPLIED. BED IS LOCKED AND LOW, BED ALARMS ACTIVE, SIDE RAILS UP X2 AND CALL LIGHT IS WITHIN REACH. WILL CONTINUE TO MONITOR PATIENT CLOSELY.
--- NOTE | 2019-06-23 23:55 | NUR ---
NURSE NOTES: TELEPHONE CALL PLACED TO KIKO HALEY, PATIENT SON, , REGARDING PATIENT ROOM CHANGE, NO ANSWER, UNABLE TO LEAVE MESSAGE, NO VOICE MAIL - FOLLOWED UP WITH CALL TO TRACE HALEY, SISTER, , NO ANSWER AFTER MULTIPLE RINGS, AGAIN,UNABLE TO LEAVE MESSAGE, NO VOICE MAIL. FORTUNATELY, PATIENT SON, KIKO, WAS NOTIFIED THAT PATIENT WAS GOING TO MOVE TO MED SURG FROM AM NURSE, AT THE TIME, ROOM ASSIGNMENT WAS NOT AVAILABLE.
[2019-06-24] VITALS: BP 120/71
[2019-06-24 04:00] VITALS: BP 133/79
[2019-06-24] MEDS ORDERED: NovoLOG Insulin Flexpen SUBQ SCH (06:30)
--- NOTE | 2019-06-24 07:48 | NUR ---
HAND-OFF: Report given to TERESO Ramírez. Informed RN that patient is a fall risk.
[2019-06-24 08:00] VITALS: BP 158/78
--- NOTE | 2019-06-24 08:10 | NUR ---
NURSE NOTES: Received patient in bed awake. IV line intact. No SOB or acute distress. Noted with confusion and impulsivity, difficult to keep in bed, charge nurse aware and paged Dr Green, awaiting callback. Bed locked in lowest position. Call light within reach. Still for OB stool sample collection. Still for PVR, patient voiding a lot as per night RN. will continue plan of care.
[2019-06-24 08:41] VITALS: BP 158/78
--- NOTE | 2019-06-24 08:41 | NUR ---
NURSE NOTES: Pulse rate rechecked, from 128 to 117 bpm.
[2019-06-24 08:55] LABS: BASOPHILS % (AUTO) 0.6 % (0.0-2.0); EOSINOPHILS % (AUTO) 1.2 % (0.0-3.0); HEMATOCRIT 31.5 % (37.0-47.0); HEMOGLOBIN 10.6 G/DL (12.0-16.0); LYMPHOCYTES % (AUTO) 17.3 % (20.0-45.0); MEAN CORPUSCULAR VOLUME 96 FL (80-99); NEUTROPHILS % (AUTO) 74.9 % (45.0-75.0); PLATELET COUNT 227 K/UL (150-450); RED BLOOD COUNT 3.28 M/UL (4.20-5.40); RED CELL DISTRIBUTION WIDTH 10.6 % (11.6-14.8); WHITE BLOOD COUNT 9.4 K/UL (4.8-10.8)
[2019-06-24] MEDS ORDERED: Aspirin Baby 81mg ORAL SCH (09:00)
[2019-06-24] MEDS ORDERED: Tamsulosin 0.4mg cap ORAL SCH (09:00)
[2019-06-24] MEDS ORDERED: Sennosides 8.6mg tab ORAL SCH (09:00)
[2019-06-24] MEDS ORDERED: GlipiZIDE 5mg tab ORAL SCH (09:00)
[2019-06-24] MEDS ORDERED: Heparin 5000 units/ml inj SUBQ SCH (09:00)
[2019-06-24] MEDS ORDERED: Docusate 250mg cap ORAL SCH (09:00)
[2019-06-24 09:15] LABS: ANION GAP 8 mmol/L (5-15); BLOOD UREA NITROGEN 27 mg/dL (7-18); CALCIUM 9.4 MG/DL (8.5-10.1); CARBON DIOXIDE 27 MMOL/L (21-32); CHLORIDE 108 MMOL/L (98-107); CREATININE 1.3 MG/DL (0.55-1.30); POTASSIUM 4.5 MMOL/L (3.5-5.1); SODIUM 143 MMOL/L (136-145)
[2019-06-24] MEDS ORDERED: ASPIR 8181 MG ORAL (09:23)
[2019-06-24] MEDS ORDERED: GLIPIZIDE5 MG ORAL (09:23)
[2019-06-24] MEDS ORDERED: FLOMAX0.4 MG ORAL (09:24)
[2019-06-24] MEDS ORDERED: JANUVIA25 MG ORAL (09:24)
[2019-06-24] MEDS ORDERED: MIRALAX17 G2 ORAL (09:25)
[2019-06-24] MEDS ORDERED: SENNA8.6 M2 PO (09:25)
[2019-06-24] MEDS ORDERED: COLACE100 MG ORAL (09:27)
[2019-06-24] MEDS ORDERED: NOVOLOG100 UNITS1 (09:27)
[2019-06-24] MEDS ORDERED: ACETAMINOPHEN325 M1 ORAL (09:28)
--- NOTE | 2019-06-24 09:33 | NUR ---
*-*DISCHARGE PLANNING*-* PATIENT HAS BEEN REFERRED BACK TO: [facility] P: [phone] F: [phone] *-*CLINICALS FAXED*-*
--- NOTE | 2019-06-24 10:15 | NUR ---
NURSE NOTES: Patient discharged to [facility] via ambulance, report given by Charge Nurse. IV line removed. ID band removed. Belongings accounted for. No new skin issues noted. Discharged in stable condition accompanied by ambulance personnel.
--- NOTE | 2019-06-24 10:20 | NUR ---
NURSE NOTES: REPORT GIVEN TO VIRY TO [facility]. PT LEFT IN STABLE CONDITION. IV REMOVED BY PATIENT. ALL BELONGINGS W PT.
--- NOTE | 2019-06-24 10:50 | NUR ---
*-*DISCHARGE PLANNED*-* PATIENT HAS BEEN ACCEPTED BACK TO: [facility] P: [phone] F: [phone]
--- NOTE | 2019-06-24 10:51 | NUR ---
*-*DISCHARGE PLANNED*-* PATIENT IS BEING DISCHARGED BACK TO: [facility] P: [phone] F: [phone]
[2019-06-24] MEDS ORDERED: Atorvastatin 80mg tab ORAL SCH (21:00)
--- NOTE | 2019-06-25 02:00 | Progress Note ---
DATE: 06/24/2019 SUBJECTIVE: The patient is doing well. No behavior issues noted. The patient is having anxiety and is forgetful. MENTAL STATUS EXAMINATION: Alert and confused. Mood is anxious. Affect is flat. Thought process is concrete. Thought content, no suicidal or homicidal ideation. Cognition is impaired. Insight and judgment is impaired. ASSESSMENT: 1. Dementia. 2. Schizoaffective disorder. PLAN: 1. We will continue current psychotropic medications. 2. Provide the patient with reality orientation. Jose Haskins M.D. DR: BELÉN JOB#: [id number] CC:
--- NOTE | 2019-06-25 03:45 | Discharge Summary ---
DATE OF ADMISSION: 06/20/2019 DATE OF DISCHARGE: 06/24/2019 PERTINENT HISTORY: The patient is a 73-year-old lady, who resides in the [facility] had admitted with an episode of hypotension at the facility. She presented with weakness and anemia. There is a history of diabetes, hypertension, dementia, and possible psychiatric problems. PERTINENT PHYSICAL FINDINGS: GENERAL: The patient is alert. HEAD, EYES, EARS, NOSE, AND THROAT: Unremarkable. LUNGS: Clear. HEART: Regular rhythm. ABDOMEN: Soft without organomegaly. EXTREMITIES: No edema. NEUROLOGIC: She is alert. No focal findings, but she is disoriented. COURSE IN THE HOSPITAL: The patient had elevation of BUN 49 and creatinine 2.4 on admission and was hydrated. She also had some mild hyperkalemia, borderline troponins of no clinical consequence, and a low albumin of 2.4. She was hydrated and her blood pressure stabilized. Her BUN and creatinine improved to 27 and 1.3. Her electrolytes normalized. She had no further episodes of hypotension. She had ultrasound finding of the distended bladder and mild hydronephrosis and bladder scans post voiding are monitored and her voiding improved. She was no longer in urinary retention. The patient has had confusion and dementia and was seen by Dr. Haskins in psychiatric consultation with a diagnosis made of dementia and major depressive disorder. The patient was alert and ambulatory with stable vital signs on the day of discharge. Her lungs were clear. Heart, regular rhythm. Abdomen, soft. Extremities, no edema. Her mental status was baseline and she was discharged back to her [facility] facility. FINAL DIAGNOSES: 1. Hypotension transient due to dehydration and blood pressure medicines. 2. Dehydration. 3. Acute kidney injury due to dehydration and blood pressure medication. 4. Alzheimer disease. 5. Incomplete bladder emptying with distention of the bladder. 6. Hydronephrosis due to the above. 7. Hyperkalemia due to JACKI inhibitors. 8. Anemia of chronic disease. 9. Dementia with behavioral disturbance. 10. Adult onset diabetes with hyperglycemia. DISCHARGE DISPOSITION: Back to the [facility] on a diabetic diet. MEDICATIONS: Per the discharge medication list. Of note, the lisinopril HCT has been discontinued. Jamaal Green M.D. DR: MORENITA JOB#: [id number] CC:
--- NOTE | 2019-06-25 10:23 | NUR ---
*-*DISCHARGE PLANNED*-* PATIENT IS BEING DISCHARGED BACK TO: [facility] P: [phone] F: [phone] [facility] HOME DISCHARGED BY NURSE [facility] [id number] ETA 10:15AM/1015PM
== END 2019-06-24 10:21 | DRG 683 ==
LOC: EDBD 21:08 → EMR 21:30 → 2E 22:24 → EDBEDREQ 22:25 → EDBEDREQSVC 22:25 → EDBEDREQ 23:06 → 4E 06-23 22:55
DX: N17.9 Acute kidney failure, unspecified (principal); G93.40 Encephalopathy, unspecified; F02.81 Dementia in other diseases classified elsewhere, unspecified severity, with behavioral disturbance; I95.1 Orthostatic hypotension; G30.9 Alzheimer's disease, unspecified; E86.0 Dehydration; R33.9 Retention of urine, unspecified; N13.30 Unspecified hydronephrosis; E87.5 Hyperkalemia; T46.1X5A Adverse effect of calcium-channel blockers, initial encounter; D63.8 Anemia in other chronic diseases classified elsewhere; E11.65 Type 2 diabetes mellitus with hyperglycemia; Z88.0 Allergy status to penicillin; F25.9 Schizoaffective disorder, unspecified
CPT/HCPCS: 36415; 76770; 80048; 80053; 80061; 81001; 82043; 82533; 82550; 82570; 82607; 82728; 82746; 82962; 83036; 83540; 83550; 83735; 84100; 84300; 84443; 84484; 85025; 87040; 87081; 87086; 93005; 93306; 96360; 99285; J1815